=== PATIENT | female | born 1975 | race Caucasian/White ===

== ENCOUNTER → 2021-01-10 07:36 | Outpatient (REF) | payer OTHER, SELFPAY | LOC: ANHLAB 07:36 | PROVIDERS: PCP Family Medicine; Visit Provider Nurse Practitioner | DX: D49.2 Neoplasm of unspecified behavior of bone, soft tissue, and skin (principal) | CPT/HCPCS: 88305 ==

== ENCOUNTER 2021-07-13 11:43 | Outpatient (CLI) | payer OTHER, SELFPAY ==
[2021-07-13 13:25] LABS: SARS-CoV-2 RNA PCR Positive (Negative)
[2021-07-13 15:07] LABS: Influenza A QL RT-PCR Negative (Negative); Influenza B QL RT-PCR Negative (Negative)
== END 2021-07-13 11:44 | disposition home or self-care (01) ==
LOC: CHSLAB 11:47
PROVIDERS: PCP Family Medicine; Visit Provider Nurse Practitioner Family
DX: U07.1 COVID-19 (principal); R68.89 Other general symptoms and signs; R50.9 Fever, unspecified
CPT/HCPCS: 87502; C9803; U0003; U0005

== ENCOUNTER 2022-11-22 08:31 | Outpatient (CLI) | payer OTHER, SELFPAY ==
--- NOTE | 2022-11-22 08:49 | ECHO_ITS ---
Patient Info Name: Dulce Maria Woody Age: 47 years : 1975 Gender: Female Ht: 63 in Wt: 150 lbs BSA: 1.76 m2 HR: 64 bpm BP: 110 / 63 mmHg Technical Quality: Good Exam Date: 11/22/2022 9:14 AM Exam Location: [facility] Patient Status: Outpatient Admit Date: 11/22/2022 Staff Ordering Physician: Cande Aguilar Interpreter: Marimar Mcgee RDCS Attending Provider: Cande Aguilar Referring Physician: Jeff KING; Exam Type: CA echo doppler color flow Study Info Indications R00.2 - Palpitations Complete two-dimensional, color flow and Doppler transthoracic echocardiogram is performed. Summary 1. Complete two-dimensional, color flow and Doppler transthoracic echocardiogram is performed. 2. Left ventricular chamber dimension is mildly enlarged. 3. Left ventricular systolic function is normal, estimated at 60-65%. 4. The left ventricular diastolic function is grade II diastolic dysfunction. 5. E/e' 6 is not elevated. 6. There is trace aortic valve regurgitation. 7. There is mild mitral valve regurgitation. 8. There is trace tricuspid valve regurgitation. 9. No pulmonary hypertension, estimated pulmonary arterial systolic pressure is 23 mmHg. 10. There is trace pulmonic regurgitation. Left Ventricle E/e' 6 is not elevated. Left ventricular chamber dimension is mildly enlarged. Left ventricular systolic function is normal, estimated at 60-65%. The left ventricular diastolic function is grade II diastolic dysfunction. Right Ventricle Right ventricular chamber dimension is normal. Right ventricular systolic function is normal. Left Atria Left atrial chamber dimension is normal. Right Atria Right atrial chamber dimension is normal. Aortic Valve The aortic valve is trileaflet. There is no aortic valve stenosis. There is trace aortic valve regurgitation. Pulmonic Valve There is trace pulmonic regurgitation. Mitral Valve There is no mitral valve stenosis. There is mild mitral valve regurgitation. Tricuspid Valve There is trace tricuspid valve regurgitation. No pulmonary hypertension, estimated pulmonary arterial systolic pressure is 23 mmHg. Pericardium/Pleural There is no pericardial effusion. Inferior Vena Cava Normal inferior vena cava with >50% collapse upon inspiration consistent with normal right atrial pressure, 5 mmHg. Aorta The aortic root size at the sinus of Valsalva is normal. Left Ventricular Outflow Tract Name Value Normal LVOT 2D LVOT Diameter 2.0 cm LVOT Doppler LVOT Peak Gradient 7 mmHg LVOT Mean Gradient 3 mmHg LVOT VTI 24 cm LVOT VTI/AV VTI Ratio 1.0 LVOT Stroke Volume 73 ml LVOT CO 14.0 l/min LVOT CI 8.0 l/min/m2 Pulmonic Valve Name Value Normal RVOT Doppler RV
== END 2022-11-22 08:32 | disposition home or self-care (01) ==
LOC: ANHCARD 08:32
PROVIDERS: PCP Family Medicine; Visit Provider Nurse Practitioner Family
DX: R00.2 Palpitations (principal); I34.0 Nonrheumatic mitral (valve) insufficiency
CPT/HCPCS: 93306

== ENCOUNTER 2022-12-04 08:31 | Outpatient (CLI) | payer OTHER, SELFPAY ==
--- NOTE | ~2022-12-04 | US_ITS ---
US abdomen limited INDICATION: Abnormal levels of serum enzymes. PROCEDURE: Realtime right upper abdominal ultrasound. COMPARISON: No prior studies for comparison. FINDINGS: There is a 1.4 cm pancreatic cyst. No other pancreatic masses. Liver echotexture is increa sed, consistent with fatty infiltration. There is normal directional flow in the portal vein. The gallbladder is normal without stones, gallbladder wall thickening or pericholecystic fluid. Comm on bile duct measures 2.6 mm. No sonographic Fitzpatrick's sign. IMPRESSION: 1: Hepatic steatosis. 2: Pancreatic cyst measuring 1.4 cm, likely benign. Reviewed, dictated and finalized at location B.
== END 2022-12-04 08:32 | disposition home or self-care (01) ==
PROVIDERS: PCP Family Medicine; Visit Provider Nurse Practitioner Family
DX: R74.8 Abnormal levels of other serum enzymes (principal); K76.0 Fatty (change of) liver, not elsewhere classified; K86.2 Cyst of pancreas
CPT/HCPCS: 76705

== ENCOUNTER 2023-04-04 11:45 | Outpatient (CLI) | payer OTHER, SELFPAY | END 2023-04-04 11:46 | disposition home or self-care (01) | LOC: CHSIMG 11:47 | PROVIDERS: PCP Family Medicine; Visit Provider Nurse Practitioner Family | DX: M79.671 Pain in right foot (principal) | CPT/HCPCS: 73630 ==

== ENCOUNTER 2023-06-04 07:00 | Outpatient (NON) | payer OTHER, SELFPAY | END 2023-06-04 07:01 | disposition home or self-care (01) | LOC: ANHLAB 06-06 12:16 | PROVIDERS: PCP Family Medicine; Visit Provider Nurse Practitioner | DX: L72.11 Pilar cyst (principal) | CPT/HCPCS: 88304 ==

== ENCOUNTER 2023-08-15 14:58 | Outpatient (RCR) | payer OTHER, SELFPAY ==
--- NOTE | 2023-08-15 16:12 | OPREHPOC ---
Outpatient Therapy Plan of Care This is a Multidisciplinary Plan of Care that may contain components documented by all disciplines (PT, OT, and ST.) PT Problem 1 PT Problem #1 Knowledge Deficit PT Goal 1 Goal 1. independent and compliant with HEP Target Visit 2 PT Problem 2 PT Problem #2 Impaired Range of Motion PT Goal 1 Goal 1. 12 degrees or better bilateral active ankle DF Target Visit 4 PT Problem 3 PT Problem #3 Impaired Strength PT Goal 1 Goal 1. 5/5 R ankle strength Target Visit 4 PT Problem 4 PT Problem #4 Impaired Flexibility PT Goal 1 Goal 1. mild tightness of less of the bilateral gatrocs Target Visit 4 PT Problem 5 PT Problem #5 Impaired Functional Mobil PT Goal 1 Goal 1. patient to ambulate without increased pain or symptoms for 5x weekly exercise bouts 2. LEFS to display 0% functional deficits 3. no tenderness to palpation of the plantar foot or achilles/gastroc of the R LE Target Visit 4
--- NOTE | 2023-08-15 16:12 | PTOPEVAL1 ---
Assessment and note entered by JT File, PT Evaluation Information Assessment Status Evaluation Diagnosis R foot/ankle equinus, plantar fasciitis Onset 07/23/23 Subjective Information patient reports she had an injection to the R foot for plantar fasciitis on 06/27/23. she reports the foot has felt better since. prior to the shot, she reports she had severe pain when up and on her feet. she reports she still has tightness in the leg and feels it is going to come back. she reports she had to take several days off of her feet and rest for it to feel better, but overnight typically the pain would be worse in the mornings . she reports all of her pain/symptoms were brought on by increased activity/exercise. she reports since the injection she is still tight. she reports she has no heel pain currently. she reports she is stretching at home doing step stretches for the gastrocs. she reports occasionally she will have pain in the L foot, but nothing like the R foot. she reports she does not have a return to the MD set at this time. she reports she works from home. she reports she wears [employer] inserts in both shoes. she just got new shoes today. Reported Pain Level Pain Score 0: Self Report Assessment PT Clinical Summary mrs. tyson is a 48 yo woman who presents to skilled PT for pain in the R foot and ankle. she presents today with signs and symptoms consistent with R plantar and achilles tendonitis. she displays tight bilateral gastrocs, tight plantar fascia of the R foot, tenderness to palpation of the R MCT and achilles, and weakness of the R ankle. she would benefit from continued skilled PT to address her objective/functional deficits to return to her prior level functional activity performance and quality of life. Plan of Care Interventions Gait Training,Hot Pack/Cold Pack,Manual Therapy, Neuro Re-education,Patient/Caregiver Educati, Therapeutic Activities,Therapeutic Exercise, Ultrasound,Other Other Interventions dry needling PT Services Indicated Yes Treatment Frequency and 1x weekly for 4 visits Duration These treatments will address the objective and functional deficits as defined above. The patient will be advanced safely and appropriately in order for the patient to progress towards his/her prior level of function. Additional exercises will be int
--- NOTE | 2023-09-21 09:09 | OPREHPOC ---
Outpatient Therapy Plan of Care This is a Multidisciplinary Plan of Care that may contain components documented by all disciplines (PT, OT, and ST.) PT Problem 1 PT Problem #1 Knowledge Deficit PT Goal 1 Goal 1. independent and compliant with HEP Target Visit 2 Progress Met PT Problem 2 PT Problem #2 Impaired Range of Motion PT Goal 1 Goal 1. 12 degrees or better bilateral active ankle DF Target Visit 4 Progress Met PT Problem 3 PT Problem #3 Impaired Strength PT Goal 1 Goal 1. 5/5 R ankle strength Target Visit 4 Progress Partially Met PT Problem 4 PT Problem #4 Impaired Flexibility PT Goal 1 Goal 1. mild tightness of less of the bilateral gatrocs Target Visit 4 Progress Met PT Problem 5 PT Problem #5 Impaired Functional Mobil PT Goal 1 Goal 1. patient to ambulate without increased pain or symptoms for 5x weekly exercise bouts 2. LEFS to display 0% functional deficits 3. no tenderness to palpation of the plantar foot or achilles/gastroc of the R LE Target Visit 4 Progress Partially Met
--- NOTE | 2023-09-21 09:10 | PTOPDC ---
Assessment and note entered by JT File, PT Evaluation Information Assessment Status Discharge Diagnosis R foot/ankle equinus, plantar fasciitis Onset 07/23/23 Subjective Information patient reports she feels a little bit better since beginning therapy. she reports she thinks she is ready to try doing her exercises on her own only. she reports she is ready to get back to her prior workout routine. patient reports she has been diligent about her stretches and HEP. she has been wearing new shoes and her inserts all the time, and has been wearing a passive stretching sock at night. Reported Pain Level Pain Score 2: Self Report Assessment PT Clinical Summary mrs. tyson presents to skilled PT for her 4th skilled PT. she presents with improved ankle rom, improved ankle strength, decreased pain, and improved quality of life. she rates her LEFS a bit worse, but subjective reports to therapist she is feeling better. she ah met 3 of 5 goals, and partially met the other 2 goals. she will DC skilled PT today and continue with HEP independent at home. Plan of Care PT Services Indicated Yes
== END 2023-09-21 10:26 | disposition home or self-care (01) ==
LOC: CHSPT 14:58
PROVIDERS: Visit Provider Podiatrist Foot & Ankle Surgery
DX: M21.6X1 Other acquired deformities of right foot (principal); M72.2 Plantar fascial fibromatosis
CPT/HCPCS: 97110; 97140; 97161

== ENCOUNTER 2023-12-28 07:43 | Outpatient (CLI) | payer OTHER, SELFPAY ==
--- NOTE | ~2023-12-28 | MR_ITS ---
EXAMINATION: MR MRCP wo/w con/w 3D wo ind DATE: 12/28/2023 08:58 INDICATION: Pancreatic cyst TECHNIQUE: Magnetic resonance imaging (MRI) of the abdomen was performed without and with 13 mL Multi mario intravenous contrast. Sequences included coronal T2-weighted SS-FSE, coronal T2-weighted FS SS- FSE, coronal T2-weighted FS FIESTA, axial T2-weighted FS FIESTA, axial T2-weighted FIESTA, sagittal T 2-weighted SS-FSE, axial T1-weighted dual-echo FSPGR, axial T2-weighted SS-FSE, axial T1-weighted LAV A, axial T2-weighted STIR FSE. Thick-slab T2-weighted FRFSE-XL images were obtained for magnetic reso nance cholangiopancreatography (MRCP). Rotating maximum intensity projection 3-D reconstructions of t he volumetric data were created by the technologist. Postcontrast sequences included a time course of axial T1-weighted LAVA. COMPARISON: Ultrasound dated 12/04/2022 FINDINGS: ABDOMEN MRI: Heart size is normal. No pericardial or pleural effusion. Liver, gallbladder, spleen, bilateral adren al glands and left kidney are normal. 4 mm T2 hyperintense nonenhancing cyst at the lower pole of the right kidney. 1.2 cm T2 hyperintense cyst in the body the pancreas which appears to been indicated w ith the main pancreatic duct. Abutting the right side of the cyst is a second 4 mm T2 hyperintense cy st. No enhancing soft tissue component. Visualized portion of the bowels are normal. No pathologicall y enlarged abdominal lymphadenopathy. Bones are unremarkable with normal marrow signal throughout. ABDOMEN MRCP: No intra-axial hepatic ductal or ductal dilation. The common bile duct measures 3 [address] maximal diame ter. The main pancreatic duct is also normal measuring less than 2 mm in maximal diameter. IMPRESSION: 1. 1.2 cm and 4 mm cystic lesions in the body the pancreas which appear to communicate with the main pancreatic duct. Most likely differential would include pseudocyst and intraductal papillary mucinous neoplasm (IPMN). Less likely differential would include mucinous cystic neoplasm (MCN), and the less common serous cystadenoma and neuroendocrine tumor. Correlate for history of pancreatitis and would recommend reimaging with pre and postcontrast MRI in one year. Reviewed, dictated and finalized at location A. IMPRESSION: 1. 1.2 cm and 4 mm cystic lesions in the body the pancreas which appear to comm unicate with the main pancreatic duct. Most likely differential would include p seudocyst and intraductal papillary mucinous neoplasm (IPMN). Less likely diffe rential would include mucinous cystic neoplasm (MCN), and the less common serou s cystadenoma and neuroendocrine tumor. Correlate for history of pancreatitis a nd would recommend reimaging with pre and postcontrast MRI in one year.
== END 2023-12-28 07:44 ==
PROVIDERS: PCP Nurse Practitioner Family
DX: K86.2 Cyst of pancreas (principal)
CPT/HCPCS: 74183; 76376; A9577

== ENCOUNTER 2024-03-26 08:45 | Outpatient (CLI) | payer OTHER, SELFPAY ==
--- NOTE | ~2024-03-26 | CT_ITS ---
EXAMINATION: CT abdomen pelvis w con DATE: 03/26/2024 09:15 INDICATION: Right lower quadrant abdominal pain. TECHNIQUE: Computed tomography (CT) of the abdomen and pelvis was performed with 100 mL Omnipaque 350 intravenous contrast. Automated exposure control and iterative reconstruction technique were employe d. The dose-length product was 456.37 mGy-cm. COMPARISON: MRCP 12/28/2023 FINDINGS: The visualized portions of the lung bases demonstrate minimal atelectasis. No pleural effus ion. The heart size is normal. No pericardial effusion. The liver, gallbladder, and spleen are normal . There is an 8 mm cyst in the pancreas. The adrenal glands and right kidney are normal. There is a 6 mm cyst in left kidney. There are no dilated loops of bowel. The appendix is normal. There are no pa thologically enlarged lymph nodes. There is no free intraperitoneal fluid. There is mild thoracic and lumbar spondylosis. IMPRESSION: 1. 8 mm pancreatic cyst. The differential diagnosis includes pseudocyst, intraductal papillary mucino us neoplasm (IPMN), mucinous cystic neoplasm (MCN), serous cystadenoma, and neuroendocrine tumor. Abd omen MRI without and with contrast is recommended in one year. Reviewed, dictated and finalized at location A. IMPRESSION: 1. 8 mm pancreatic cyst. The differential diagnosis includes pseudocyst, intrad uctal papillary mucinous neoplasm (IPMN), mucinous cystic neoplasm (MCN), serou s cystadenoma, and neuroendocrine tumor. Abdomen MRI without and with contrast is recommended in one year.
== END 2024-03-26 08:46 | disposition home or self-care (01) ==
PROVIDERS: PCP Nurse Practitioner Family
DX: R10.31 Right lower quadrant pain (principal); K86.2 Cyst of pancreas
CPT/HCPCS: 74177; Q9967